=== PATIENT | female | born 1985 | race African-American/Black ===

== ENCOUNTER 2017-09-13 07:43 | Emergency (ER) | payer SELFPAY ==
[2017-09-13 07:48] VITALS: BMI 43.7
[2017-09-13 07:49] VITALS: BP 151/88
[2017-09-13] MEDS ORDERED: SOLU-Medrol 125 MG VIAL IVP ONE (08:39)
[2017-09-13] MEDS ORDERED: BENADRYL INJ 50 MG VIAL IVP ONE (08:40)
[2017-09-13] MEDS ORDERED: ZANTAC PO ONE ×2 (08:43→08:47)
--- NOTE | 2017-09-13 08:43 | DR.RASH ---
HPI - Time Seen Time seen: 08:31 - PCP Primary Care Physician: BERNADETTE - HPI Comment HPI Comment: 31 y/o female presenting with complain of breaking out in hives during her overnight sleep hours. She had pot pie for dinner and it is not an unusual brand name for her. She showered about 2300 hrs. The shower was in her home. She did not use different different soap, wash cloth or towel. she did not put on body lotion. So it's unclear what caused this. She denies dyspnea, swollen tongue or lips. She is not feeling like her throat is closing. She has associated intense pruritis. - Complaint Chief Complaint:: PT. STATES LAST NIGHT SHE BROKE OUT INTO A RASH ALL OVER HER BODY. PT. C/O SEVERE ITCHING. Onset of Chief Complaint: 09/12/17 - Reviewed Nurses Notes Review: Yes - Source History Provided: Patient - Mode of Arrival Mode of Arrival: Ambulatory - Location Location: Other (generalised) - Quality Quality: Pruritic, Urticarial - Context Circumstances: Spontaneous onset History of: None - Severity Pain Severity: Severe - Associated signs and symptoms Associated signs and symptoms: None PMH - PMH Past Medical History: No Past Medical History Comment: positive for chronic facial rash Past Surgical History: Yes Surgical History: [employer] Surgery, Other Past Surgical History Comment: D&C - Family History History of Family Medical Conditions: Yes Family Medical History: Diabetes Mellitus, Hypertension Family Medical History Comment: CHF - Social History Does patient currently use any type of tobacco product: No Have you used tobacco products in the last 12 months: No Type of Tobacco Use: None Does any household member use tobacco: No Alcohol Use: None Do you use any recreational Drugs:: No Lives With: Family Lives Where: Home - infectious screening In the last 2 months have you had wt loss of >10#?: NO Have you had fever, night sweats or hemotysis?: No Have you traveled outside the country in the last 6 months?: No Isolation: Standard ROS - Review of Systems Constitutional: No Symptoms Reported Eyes: No Symptoms Reported ENTM: No Symptoms Reported Respiratoy: No Symptoms Reported Cardiovascular: No Symptoms Reported Gastrointestinal/Abdominal: No Symptoms Reported Genitourinary: No Symptoms Reported Neurological: No Symptoms Reported Musculoskeletal: No Symptoms Reported Integumentary: Rash, Itching (diffuse) Hematologic/Lymphatic: No Symptoms Reported Endocrine: No Symptoms Reported Psychiatric: No Symptoms Reported All Other Systems: Reviewed and Negative PE - Vital Signs Vitals: Temperature 98.1 F Pulse Rate 89 Respiratory Rate 20 Blood Pressure 151/88 O2 Sat by Pulse Oximetry 96 - General Limitations: No Limitations General Appearance: Alert, In No Apparent Distress - Head Head Exam: Normal Inspection - Eyes Eye exam: Normal Appearance - ENT ENT Exam: Normal Exam External Ear Exam: Normal External Inspection TM/Canal Exam: Bilateral Normal Nose Exam: Normal Nose Exam Nasal Speculum Exam: Bilateral Normal Mouth Exam: Normal Inspection Teeth Exam: Normal Inspection Throat Exam: Normal Inspection - Neck Neck Exam: Normal Inspection - Chest Chest Inspection: Normal Inspection - Respiratory Respiratory Exam: Normal Lung Sounds Bilat - Cardiovascular Cardiovascular Exam: Regular Rate, Normal Rhythm - Abdominal Exam Abdominal Exam: Normal Inspection, Normal Bowel Sounds, Soft - Extremities Extremities Exam: Normal Inspection - Back Back Exam: Normal Inspection - Neurologic Neurological Exam: Alert, Oriented X3, CN II-XII Intact - Psychiatric Psychiatric Exam: Normal Affect, Normal Mood - Skin Skin Exam: Rash (papules, some urticarial, diffuse in location) Type of Lesion: Rash Distribution: Generalized Description: Macular, Papular, Urticarial Course - Reevaluation 1st: Improved 2nd: Unchanged - Diagnosis Discharge Problem: Urticaria - Discharge Plan Disposition: 01 HOME, SELF-CARE Condition: Stable - Follow ups/Referrals Follow ups/Referrals: NFD,None [Primary Care Provider] - 3 days - Instructions
[2017-09-13] MEDS ORDERED: BENADRYL INJ 50 MG VIAL ONE (08:47)
[2017-09-13] MEDS ORDERED: SOLU-Medrol 125 MG VIAL ONE (08:47)
== END 2017-09-13 10:38 | disposition home or self-care (01) ==
LOC: ER 08:09
DX: L50.8 Other urticaria (principal)
CPT/HCPCS: 96365; 96374; 96375; 99282; 99283; A4222; J1200; J2930